=== PATIENT | male | born 1930 | race Caucasian/White ===

== ENCOUNTER 2019-02-16 16:48 | Inpatient (IN) | payer OTHER ==
[~2019-02-16] VITALS: Ht 167.6 cm; Wt 59.9 kg
[2019-02-16 17:29] VITALS: BP_SYST 114
[2019-02-16 19:15] LABS: HEMATOCRIT 26.3 % (36-54); HEMOGLOBIN 8.4 g/dL (14.0-18.0); MEAN CORPUSCULAR HEMOGLOBIN 24 pg (27-31); MEAN CORPUSCULAR HGB CONC 32 % (32-36); MEAN CORPUSCULAR VOLUME 76 fL (79.0-98.0); PLATELET COUNT (AUTO) 633 K/uL (130-430); RED BLOOD CELL COUNT(AUTO) 3.48 MIL/uL (4.2-6.2); RED CELL DISTRIBUTION WIDTH 16.5 % (9.0-15.0); WHITE BLOOD COUNT (AUTO) 21.2 K/uL (4.8-10.8)
[2019-02-16 19:29] LABS: BAND % (MANUAL) 1 % (0-6)
[2019-02-16 19:30] LABS: BASOPHILS % (MANUAL) 0 % (0-2); EOSINOPHILS % (MANUAL) 0 % (0-7); LYMPHOCYTES % (MANUAL) 12 % (20-46); MONOCYTES % (MANUAL) 9 % (0-11)
[2019-02-16 19:32] LABS: ALANINE AMINOTRANSFERASE 25 U/L (12-78); ALBUMIN 1.4 g/dL (3.4-4.8); ANION GAP 3 (5-15); ASPARTATE AMINOTRANSFERASE 25 U/L (10-37); CALCIUM 8.9 mg/dL (8.4-11.0); CHLORIDE 100 mmol/L (98-107); CREATININE 1.07 mg/dL (0.55-1.30); GLUCOSE 135 mg/dL (70-99); POTASSIUM 4.7 mmol/L (3.5-5.1); SODIUM SERUM 133 mmol/L (136-145); TOTAL BILIRUBIN 0.6 mg/dL (0.0-1.0); UREA NITROGEN, BLOOD 17 mg/dL (8-21)
[2019-02-16 20:00] VITALS: BP_SYST 120
[2019-02-16] MEDS ORDERED: cefTRIAXone 1 GM IVPB PREMIX 50 ML IV ONE (21:51)
[2019-02-16] MEDS: cefTRIAXone 1 GM in D5W 50 ML IV SCH (21:51)
[2019-02-16] MEDS: D5/0.45 NS 1,000 ML IV SCH (21:51)
[2019-02-17 01:00] VITALS: BP_SYST 110
[2019-02-17 07:45] VITALS: BP_SYST 102
[2019-02-17 08:04] LABS: BASOPHILS # (AUTO) 0.1 K/uL (0.0-0.2); BASOPHILS % (AUTO) 0.3 % (0.0-2.0); EOSINOPHILS % (AUTO) 0.2 % (0.0-4.0); HEMATOCRIT 26.5 % (36-54); HEMOGLOBIN 8.5 g/dL (14.0-18.0); LYMPHOCYTES # (AUTO) 2.9 K/uL (1.0-5.5); LYMPHOCYTES % (AUTO) 13.8 % (20.5-51.5); MEAN CORPUSCULAR HEMOGLOBIN 25 pg (27-31); MEAN CORPUSCULAR HGB CONC 32 % (32-36); MEAN CORPUSCULAR VOLUME 77 fL (79.0-98.0); MONOCYTES # (AUTO) 2.4 K/uL (0.0-1.0); MONOCYTES % (AUTO) 11.4 % (1.7-9.3); NEUTROPHILS # (AUTO) 15.8 K/uL (1.8-7.7); NEUTROPHILS % (AUTO) 74.3 % (40.0-70.0); PLATELET COUNT (AUTO) 653 K/uL (130-430); RED BLOOD CELL COUNT(AUTO) 3.47 MIL/uL (4.2-6.2); RED CELL DISTRIBUTION WIDTH 16.5 % (9.0-15.0); WHITE BLOOD COUNT (AUTO) 21.3 K/uL (4.8-10.8)
[2019-02-17 08:35] LABS: ANION GAP 1 (5-15); CALCIUM 8.9 mg/dL (8.4-11.0); CHLORIDE 101 mmol/L (98-107); CREATININE 1.13 mg/dL (0.55-1.30); GLUCOSE 132 mg/dL (70-99); PHOSPHORUS 3.9 mg/dL (2.7-4.5); POTASSIUM 5.1 mmol/L (3.5-5.1); SODIUM SERUM 133 mmol/L (136-145); THYROID STIMULATING HORMONE 0.96 uIu/mL (0.34-4.82); UREA NITROGEN, BLOOD 14 mg/dL (8-21)
[2019-02-17 08:37] LABS: TOTAL IRON BIND. CAPACITY 81 ug/dL (250-450)
[2019-02-17] MEDS ORDERED: DIATR MEGLU/DIATRIZ SOD 30 ML SOLUTION PO ONE (08:38)
[2019-02-17 08:42] LABS: ERYTHROCYTE SEDIMENTATION RATE 109 MM/HR (0-15)
[2019-02-17] MEDS ORDERED: IOHEXOL 100 ML IV ONE (10:56)
[2019-02-17] MEDS: D5/0.45 NS 1,000 ML IV SCH ×2 (11:43→23:02)
[2019-02-17 12:00] VITALS: BP_SYST 99
[2019-02-17] MEDS ORDERED: POLYETHYLENE GLYCOL 3350, 17 GM/ POWD.PACK PO ONE (12:15)
[2019-02-17 16:00] VITALS: BP_SYST 106
[2019-02-17] MEDS ORDERED: MEGESTROL ACETATE 400 MG/10 ML UDC PO ONE (19:30)
[2019-02-17 20:00] VITALS: BP_SYST 103
[2019-02-17] MEDS: cefTRIAXone 1 GM in D5W 50 ML IV SCH (20:58)
[2019-02-17] MEDS: SOD FERRIC GLUC COMPLEX/SUC 125 MG in NS 100 ML IV SCH (22:01)
[2019-02-18 01:13] VITALS: BP_SYST 130
[2019-02-18 01:17] VITALS: BP_SYST 108
[2019-02-18 07:55] VITALS: BP_SYST 112
[2019-02-18 08:10] LABS: BASOPHILS # (AUTO) 0.1 K/uL (0.0-0.2); BASOPHILS % (AUTO) 0.5 % (0.0-2.0); EOSINOPHILS # (AUTO) 0.1 K/uL (0.0-0.4); EOSINOPHILS % (AUTO) 0.3 % (0.0-4.0); HEMATOCRIT 25.4 % (36-54); HEMOGLOBIN 8.3 g/dL (14.0-18.0); LYMPHOCYTES # (AUTO) 2.3 K/uL (1.0-5.5); MEAN CORPUSCULAR HEMOGLOBIN 25 pg (27-31); MEAN CORPUSCULAR HGB CONC 33 % (32-36); MEAN CORPUSCULAR VOLUME 76 fL (79.0-98.0); MONOCYTES # (AUTO) 2.5 K/uL (0.0-1.0); MONOCYTES % (AUTO) 12.8 % (1.7-9.3); NEUTROPHILS # (AUTO) 14.5 K/uL (1.8-7.7); NEUTROPHILS % (AUTO) 74.4 % (40.0-70.0); PLATELET COUNT (AUTO) 595 K/uL (130-430); RED BLOOD CELL COUNT(AUTO) 3.35 MIL/uL (4.2-6.2); RED CELL DISTRIBUTION WIDTH 16.3 % (9.0-15.0); WHITE BLOOD COUNT (AUTO) 19.5 K/uL (4.8-10.8)
[2019-02-18] MEDS: MEGESTROL ACETATE 400 MG/10 ML UDC PO SCH (09:34)
[2019-02-18] MEDS: POLYETHYLENE GLYCOL 3350, 17 GM/ POWD.PACK PO SCH (09:34)
[2019-02-18 09:50] LABS: BILIRUBIN,URINE NEGATIVE (NEGATIVE); BLOOD, URINE NEGATIVE (NEGATIVE); CLARITY/URINE CLEAR (CLEAR); COLOR,URINE YELLOW (YELLOW); GLUCOSE,URINE NEGATIVE (NEGATIVE); KETONES,URINE NEGATIVE (NEGATIVE); LEUKOCYTE ESTERASE ,URINE NEGATIVE (NEGATIVE); NITRITE, URINE NEGATIVE (NEGATIVE); PH,URINE 7.5 (5.0-8.0); PROTEIN URINE TRACE (NEGATIVE); UROBILINOGEN,URINE >=8 (0.2-1.0)
[2019-02-18 09:54] LABS: BACTERIA,URINE FEW /HPF (None Seen); RBC,URINE 0-3 /HPF (0-3); WBC,URINE 0-3 /HPF (0-3)
[2019-02-18 12:00] VITALS: BP_SYST 103
[2019-02-18 12:06] LABS: % FREE PSA 21.1 % (.); FREE PSA 0.19 ng/mL; PROSTATE SPECIFIC AG TOTAL 0.9 ng/mL (0.0-4.0)
[2019-02-18] MEDS: D5/0.45 NS 1,000 ML IV SCH (12:32)
[2019-02-18 16:16] VITALS: BP_SYST 104
[2019-02-18] MEDS: cefTRIAXone 1 GM in D5W 50 ML IV SCH (20:15)
[2019-02-18] MEDS: SOD FERRIC GLUC COMPLEX/SUC 125 MG in NS 100 ML IV SCH (21:12)
[2019-02-19 00:08] VITALS: BP_SYST 92
[2019-02-19] MEDS: D5/0.45 NS 1,000 ML IV SCH ×2 (05:30→12:13)
[2019-02-19] MEDS: POLYETHYLENE GLYCOL 3350, 17 GM/ POWD.PACK PO SCH (08:53)
[2019-02-19] MEDS: MEGESTROL ACETATE 400 MG/10 ML UDC PO SCH (08:53)
[2019-02-19 08:56] VITALS: BP_SYST 98
[2019-02-19 12:00] VITALS: BP_SYST 107
[2019-02-19 16:37] VITALS: BP_SYST 97
[2019-02-19 19:00] VITALS: BP_SYST 101
[2019-02-19 20:00] VITALS: BP_SYST 101
[2019-02-19] MEDS: cefTRIAXone 1 GM in D5W 50 ML IV SCH (20:15)
[2019-02-19] MEDS: SOD FERRIC GLUC COMPLEX/SUC 125 MG in NS 100 ML IV SCH (20:15)
[2019-02-20 00:02] VITALS: BP_SYST 95
[2019-02-20] MEDS: D5/0.45 NS 1,000 ML IV SCH ×2 (04:00→13:00)
[2019-02-20 06:28] LABS: BASOPHILS # (AUTO) 0.1 K/uL (0.0-0.2); BASOPHILS % (AUTO) 0.3 % (0.0-2.0); EOSINOPHILS # (AUTO) 0.1 K/uL (0.0-0.4); EOSINOPHILS % (AUTO) 0.4 % (0.0-4.0); HEMATOCRIT 25.5 % (36-54); HEMOGLOBIN 8.3 g/dL (14.0-18.0); LYMPHOCYTES # (AUTO) 2.4 K/uL (1.0-5.5); LYMPHOCYTES % (AUTO) 11.9 % (20.5-51.5); MEAN CORPUSCULAR HEMOGLOBIN 25 pg (27-31); MEAN CORPUSCULAR HGB CONC 33 % (32-36); MEAN CORPUSCULAR VOLUME 75 fL (79.0-98.0); MONOCYTES # (AUTO) 2.6 K/uL (0.0-1.0); MONOCYTES % (AUTO) 12.7 % (1.7-9.3); NEUTROPHILS % (AUTO) 74.7 % (40.0-70.0); PLATELET COUNT (AUTO) 550 K/uL (130-430); RED BLOOD CELL COUNT(AUTO) 3.38 MIL/uL (4.2-6.2); RED CELL DISTRIBUTION WIDTH 16.3 % (9.0-15.0); WHITE BLOOD COUNT (AUTO) 20.1 K/uL (4.8-10.8)
[2019-02-20 06:40] LABS: INR 1.2 (0.80-1.20); PROTHROMBIN TIME 12.2 SECS (9.5-12.5)
[2019-02-20 07:01] LABS: ALBUMIN 1.3 g/dL (3.4-4.8); BILIRUBIN,DIRECT 0.5 mg/dL (0.0-0.3); TOTAL BILIRUBIN 0.6 mg/dL (0.0-1.0)
[2019-02-20 07:51] VITALS: BP_SYST 109
[2019-02-20] MEDS: MEGESTROL ACETATE 400 MG/10 ML UDC PO SCH (08:27)
[2019-02-20] MEDS ORDERED: CYANOCOBALAMIN 1000 MCG/ML VIAL IM ONE (10:45)
[2019-02-20] MEDS: POLYETHYLENE GLYCOL 3350, 17 GM/ POWD.PACK PO SCH (12:57)
[2019-02-20 13:15] VITALS: BP_SYST 101
[2019-02-20 17:01] VITALS: BP_SYST 100
[2019-02-20 20:00] VITALS: BP_SYST 98
[2019-02-20] MEDS: cefTRIAXone 1 GM in D5W 50 ML IV SCH (20:52)
[2019-02-20] MEDS: SOD FERRIC GLUC COMPLEX/SUC 125 MG in NS 100 ML IV SCH (20:53)
[2019-02-20] MEDS: GABAPENTIN 100 MG CAPSULE PO SCH (20:54)
[2019-02-21 00:38] VITALS: BP_SYST 99
[2019-02-21 05:30] VITALS: BP_SYST 103
[2019-02-21] MEDS: D5/0.45 NS 1,000 ML IV SCH ×2 (05:40→21:33)
[2019-02-21 07:03] LABS: INR 1.2 (0.80-1.20); PROTHROMBIN TIME 11.8 SECS (9.5-12.5)
[2019-02-21 07:38] VITALS: BP_SYST 108
[2019-02-21] MEDS: MEGESTROL ACETATE 400 MG/10 ML UDC PO SCH (08:09)
[2019-02-21] MEDS: POLYETHYLENE GLYCOL 3350, 17 GM/ POWD.PACK PO SCH (08:09)
[2019-02-21 11:37] VITALS: BP_SYST 98
[2019-02-21] MEDS ORDERED: BENZOCAINE 20% 0.5mL UD SPRAY MM ONE (12:34)
[2019-02-21] MEDS ORDERED: MIDAZOLAM HCL 5 MG/5 ML VIAL ONE (12:34)
[2019-02-21] MEDS: fentaNYL CITRATE/PF 100 MCG/2 ML AMP ONE ×2 (13:07→13:10)
[2019-02-21] MEDS ORDERED: FLUCONAZOLE 200 MG TABLET (DIFLUCAN) PO ONE (14:00)
[2019-02-21 15:27] LABS: FOLATE (FOLIC ACID) 2.7 ng/mL (>3.0)
[2019-02-21 15:36] VITALS: BP_SYST 99
[2019-02-21 20:00] VITALS: BP_SYST 107
[2019-02-21] MEDS: cefTRIAXone 1 GM in D5W 50 ML IV SCH (20:32)
[2019-02-21] MEDS: GABAPENTIN 100 MG CAPSULE PO SCH (20:32)
[2019-02-21] MEDS: SOD FERRIC GLUC COMPLEX/SUC 125 MG in NS 100 ML IV SCH (20:33)
[2019-02-22 01:11] VITALS: BP_SYST 102
[2019-02-22 06:57] LABS: BASOPHILS % (AUTO) 0.2 % (0.0-2.0); EOSINOPHILS # (AUTO) 0.1 K/uL (0.0-0.4); EOSINOPHILS % (AUTO) 0.4 % (0.0-4.0); LYMPHOCYTES # (AUTO) 2.3 K/uL (1.0-5.5); LYMPHOCYTES % (AUTO) 11.2 % (20.5-51.5); MEAN CORPUSCULAR HEMOGLOBIN 24 pg (27-31); MEAN CORPUSCULAR HGB CONC 32 % (32-36); MEAN CORPUSCULAR VOLUME 76 fL (79.0-98.0); MONOCYTES # (AUTO) 2.4 K/uL (0.0-1.0); MONOCYTES % (AUTO) 11.8 % (1.7-9.3); NEUTROPHILS # (AUTO) 15.7 K/uL (1.8-7.7); NEUTROPHILS % (AUTO) 76.4 % (40.0-70.0); PLATELET COUNT (AUTO) 535 K/uL (130-430); RED BLOOD CELL COUNT(AUTO) 3.31 MIL/uL (4.2-6.2); RED CELL DISTRIBUTION WIDTH 17.4 % (9.0-15.0); WHITE BLOOD COUNT (AUTO) 20.5 K/uL (4.8-10.8)
[2019-02-22 07:06] LABS: ANION GAP 2 (5-15); CALCIUM 8.8 mg/dL (8.4-11.0); CHLORIDE 103 mmol/L (98-107); CREATININE 0.87 mg/dL (0.55-1.30); GLUCOSE 123 mg/dL (70-99); POTASSIUM 3.9 mmol/L (3.5-5.1); SODIUM SERUM 133 mmol/L (136-145); UREA NITROGEN, BLOOD 11 mg/dL (8-21)
[2019-02-22 07:54] VITALS: BP_SYST 97
[2019-02-22] MEDS: MEGESTROL ACETATE 400 MG/10 ML UDC PO SCH (08:39)
[2019-02-22] MEDS: POLYETHYLENE GLYCOL 3350, 17 GM/ POWD.PACK PO SCH (08:39)
[2019-02-22] MEDS ORDERED: FLUCONAZOLE 100 MG TABLET (DIFLUCAN) PO SCH (09:00)
[2019-02-22] MEDS: D5/0.45 NS 1,000 ML IV SCH (09:28)
[2019-02-22 11:45] VITALS: BP_SYST 103
[2019-02-22 15:40] VITALS: BP_SYST 103
[2019-02-22] MEDS ORDERED: DIF100 PO (15:44)
[2019-02-22] MEDS ORDERED: MEGE40TA PO (15:45)
[2019-02-22] MEDS ORDERED: POLY17PO4 PO (15:46)
[2019-02-22] MEDS ORDERED: DOCU-144 PO (15:46)
[2019-02-22 16:05] VITALS: BP_SYST 103
[2019-02-24 06:06] LABS: CEA 0.7 ng/mL (0.0-4.7)
[2019-02-24 08:10] LABS: AFP, TUMOR MARKER <0.7 ng/mL (0.0-8.3)
[2019-02-25 12:08] LABS: CARBOHYDRATE AG 19-9 36 U/mL (0-35)
[2019-03-01 17:07] LABS: HOMOCYSTEINE, PLASMA 11.3
== END 2019-02-22 16:35 | disposition home or self-care (01) | DRG 368 ==
LOC: SMU 17:23
PROVIDERS: ADMIT Family Medicine; ATTEND Family Medicine
PROC: 0DB68ZX Excision of Stomach, Via Natural or Artificial Opening Endoscopic, Diagnostic (ICD-10-PCS; 2019-02-21)
PROC: 0DD58ZX Extraction of Esophagus, Via Natural or Artificial Opening Endoscopic, Diagnostic (ICD-10-PCS; 2019-02-21)
PROC: 0DB98ZX Excision of Duodenum, Via Natural or Artificial Opening Endoscopic, Diagnostic (ICD-10-PCS; principal; 2019-02-21 13:00)
DX: B37.81 Candidal esophagitis (principal); E43 Unspecified severe protein-calorie malnutrition; E86.0 Dehydration; R91.8 Other nonspecific abnormal finding of lung field; D50.9 Iron deficiency anemia, unspecified; J44.9 Chronic obstructive pulmonary disease, unspecified; D63.8 Anemia in other chronic diseases classified elsewhere; E78.5 Hyperlipidemia, unspecified; F17.200 Nicotine dependence, unspecified, uncomplicated; I10 Essential (primary) hypertension; K76.9 Liver disease, unspecified; N28.1 Cyst of kidney, acquired; R59.1 Generalized enlarged lymph nodes; Z68.21 Body mass index [BMI] 21.0-21.9, adult
CPT/HCPCS: 36415; 43239; 71045; 71260-TC; 78306; 80048; 80053; 80076; 81000-TC; 82105; 82272; 82378; 82607; 82728; 82746; 83090; 83540-TC; 83550-TC; 83615-TC; 83735-TC; 83921; 84100-TC; 84153; 84443-TC; 85007; 85025; 85027; 85610-TC; 85651-TC; 85730-TC; 86140; 86301; 88160; 88305; 88312; 88313; A9503; J0696; J2250; J2916; J3010; J3420; J7030; J7060; Q9964; Q9967